=== PATIENT | male | born 1975 | race Caucasian/White ===

== ENCOUNTER 2021-11-14 14:42 | Outpatient (CLI) | payer BC, SELFPAY ==
--- NOTE | 2021-11-14 16:00 | CRLHL7_ITS ---
For Patients: As a result of the Cures Act, medical imaging exams and procedure reports are released immediately into your electronic medical record. You may view this report before your referring provider. If you have questions, please contact your health care provider. INDICATION: ESSENTIAL HYPERTENSION COMPARISON: none TECHNIQUE: The carotid circulations and the vertebral arteries in the neck were examined with miller-scale ultrasound, color-flow and Doppler spectral analysis. Degrees of stenosis were determined using SRU 2002 Consensus Panel Criteria. FINDINGS: Sonographic images demonstrate no evidence of atherosclerotic plaque formation or suspicious soft tissue mass. The spectral Doppler tracings of the common carotid, internal and external carotid arteries demonstrate no abnormal turbulence or spectral broadening. There was no significant elevation of peak systolic blood flow which would indicate a hemodynamically significant stenosis by NASCET criteria. The ICA/CCA peak systolic velocity ratio measures 0.8 on the right and 0.7 on the left. There was antegrade blood flow demonstrated within the vertebral arteries. IMPRESSION: Normal carotid ultrasound. Dictated by Sandeep Goncalves MD @ 11/14/2021 4:05:53 PM (Electronically Signed)
== END 2021-11-14 14:43 | disposition home or self-care (01) ==
LOC: RAD 14:43
PROVIDERS: PCP Physician Assistant Medical; Visit Provider Physician Assistant Medical
DX: I10 Essential (primary) hypertension (principal)
CPT/HCPCS: 93306; 93880

== ENCOUNTER 2022-05-13 21:00 | Emergency (ER) | payer BC, SELFPAY ==
[2022-05-13 21:09] VITALS: BP 155/99; PULSE 88; RESP 16; TEMP 35.8; O2SAT 96
--- NOTE | 2022-05-13 21:29 | ED_ITS ---
HPI - General Adult General Time Seen by Provider: 21:29 Date Seen: 05/13/22 Chief complaint: Headache/Migraine Stated complaint: high bp Time Seen by Provider: 05/13/22 21:15 Source: patient Mode of arrival: ambulatory Limitations: no limitations History of Present Illness HPI narrative: patient is a 46-year-old male had elevated blood pressure today. He reports that he drinks daily. He has been through treatment a couple of times, he has had 3 DUIs, his is here with him moves he is from. He denies any symptoms at present his, his blood pressures improved on presentation was elevated at home. He did really have any symptoms with that. He was anxious as well. He has had no chest pain, breathing problem other issues. He has been drinking quite heavily today. His does report that she would take him home to let Related Data Previous Rx's Medication Instructions Recorded metoprolol succinate 50 mg 50 mg PO QDAY #90 tabs 02/14/22 tablet,extended release 24 hr amlodipine 5 mg tablet See Rx Instructions .Route 02/24/22 .COMPLEX #90 tabs losartan 100 mg tablet See Rx Instructions .Route 02/24/22 .COMPLEX #90 tabs Allergies Allergy/AdvReac Type Severity Reaction Status Date / Time seasonal Allergy Mild Itchy Uncoded 10/31/21 14:45 eyes/throat, fluid in ears Review of Systems Status of ROS: Reports: 6 or more systems reviewed and unremarkable except as noted in History and below [facility] Medical History History of echocardiogram Family History Maternal Grandmother Aneurysm Breast cancer Diabetes High blood pressure Maternal Grandfather Stroke Coronary artery disease Paternal Grandfather Stroke Coronary artery disease High blood pressure Mother Diabetes Social History Narrative: Has 4 children Non-smoker Smoking Status: Never smoker Exam Narrative: Exam Narrative: Objective: The patient's vital signs shows blood pressure 155/99 his rest was vital signs unremarkable Patient has slurred speech, smells of alcohol, he is neurologically nonfocal. patient denies trauma or injury. Const: Vital Signs, click to edit/add: Vital Signs - 24 hr 05/13/22 21:09 Temperature 96.4 F L Pulse Rate [Left P ulse Oximeter] 88 Respiratory Rate 16 Blood Pressure [Ri ght Upper Arm] 155/99 H Pulse Oximetry 96 Oxygen Delivery Me thod Room Air Course Vital Signs Vital signs: Initial Vital Signs Temperature 96.4 F L 05/13/22 21:09 Temperature Source Temporal Artery Scan 05/13/22 21:09 Pulse Rate 88 05/13/22 21:09 Pulse Rhythm 05/13/22 21:09 Respiratory Rate 16 05/13/22 21:09 Blood Pressure 155/99 H 05/13/22 21:09 Blood Pressure Mean 117 05/13/22 21:09 Pulse Oximetry 96 05/13/22 21:09 Oxygen Delivery Method 05/13/22 21:09 Vital Signs Temperature 96.4 F L 05/13/22 21:09 Pulse Rate 88 05/13/22 21:09 Respiratory Rate 16 05/13/22 21:09 Blood Pressure 155/99 H 05/13/22 21:09 Pulse Oximetry 96 05/13/22 21:09 Oxygen Delivery Method 05/13/22 21:09 Temperature 96.4 F L 05/13/22 21:09 Pulse Rate 88 05/13/22 21:09 Respiratory Rate 16 05/13/22 21:09 Blood Pressure 155/99 H 05/13/22 21:09 Pulse Oximetry 96 05/13/22 21:09 Oxygen Delivery Method 05/13/22 21:09 Medical Decision Making MDM Narrative Medical decision making narrative: Patient is a 46 white male alcoholic who has had 3 DUIs, he still working as a supportive employment case manager of an [employer], he drinks daily. He is interested in some type of treatment, at this point given that he has responsible adult to take him home, will given the social Service number to call tomorrow to arrange assessment and give options for inpatient care. He seems interested in that at this point. His is acceptable to take him home. Discharge Plan Discharge Clinical Impression: Alcoholism, chronic, Alcohol intoxication, Hypertension Patient Disposition: Home w/ Parent or Adult Condition: Stable Instructions: Abuse of Alcohol (ED), Hypertension (ED) Additional Instructions: recommend call tomorrow for social service consult regarding treatment options for inpatient care for alcoholism. Home with family tonight. Light activity, fluids, avoid alcohol. Return as needed Activity Level: Light activity Discharge Diet: Regular Prescriptions: No Action metoprolol succinate 50 mg tablet extended release 24 hr 50 mg PO QDAY Qty: 90 0RF amlodipine 5 mg tablet See Rx Instructions .ROUTE .COMPLEX Qty: 90 0RF Dose Instruction: TAKE 1 TABLET BY MOUTH EVERY DAY Rx Instructions: TAKE 1 TABLET BY MOUTH EVERY DAY losartan 100 mg tablet See Rx Instructions .ROUTE .COMPLEX Qty: 90 0RF Dose Instruction: TAKE 1 TABLET BY MOUTH EVERY DAY Rx Instructions: TAKE 1 TABLET BY MOUTH EVERY DAY Follow Up/Referrals: Francisco Javier Kessler PA-C [Primary Care Provider] - Stand Alone Forms: [facility] Info Instructions
== END 2022-05-13 21:44 | disposition home or self-care (01) ==
PROVIDERS: Emergency Provider Family Medicine; PCP Physician Assistant Medical
DX: F10.229 Alcohol dependence with intoxication, unspecified (principal); I10 Essential (primary) hypertension
CPT/HCPCS: 99282; 99283

== ENCOUNTER 2022-05-15 11:17 | Outpatient (CLI) | payer BC, SELFPAY ==
[2022-05-15 21:48] LABS: Chloride* 101 mmol/L (96-114)
[2022-05-15 21:49] LABS: Albumin* 4.6 g/dL (3.3-5.0); Potassium* 4.9 mmol/L (3.6-5.1); Sodium* 139 mmol/L (135-149)
[2022-05-15 21:51] LABS: Bilirubin Total* 1.8 mg/dL (0.1-1.5); Carbon Dioxide* 30 mmol/L (20-32); Cholesterol* 265 mg/dL (90-199); Creatinine* 0.8 mg/dL (0.5-1.5); Estimated Glomerular Filt Rate 111 ml/min
[2022-05-15 21:52] LABS: Alanine Aminotransferase* 118 U/L (4-50); Alkaline Phosphatase* 102 U/L (40-150); Aspartate Amino Transferase* 95 U/L (12-35); Blood Urea Nitrogen* 14 mg/dL (5-24); Calcium* 9.7 mg/dL (8.4-10.6); Glucose* 132 mg/dL (60-115); Total Protein* 7.9 g/dL (6.0-8.3); Triglycerides* 92 mg/dL (40-149)
[2022-05-15 22:03] LABS: HDL Cholesterol* 133 mg/dL (>=40); LDL Cholesterol Calculated 114 mg/dL (<100)
== END 2022-05-15 11:18 | disposition home or self-care (01) ==
PROVIDERS: PCP Physician Assistant Medical; Visit Provider Physician Assistant Medical
DX: F10.20 Alcohol dependence, uncomplicated (principal); I10 Essential (primary) hypertension
CPT/HCPCS: 80053; 80061; 84443

== ENCOUNTER 2023-11-12 14:37 | Outpatient (CLI) | payer BC, SELFPAY | END 2023-11-12 14:38 | disposition home or self-care (01) | PROVIDERS: PCP Physician Assistant Medical; Visit Provider Physician Assistant Medical | DX: I10 Essential (primary) hypertension (principal); R79.89 Other specified abnormal findings of blood chemistry | CPT/HCPCS: 80053; 80061 ==